=== PATIENT | female | born 1985 | race Caucasian/White ===

== ENCOUNTER 2017-12-21 13:05 | Outpatient (CLI) | payer OTHER ==
[2017-12-21] MEDS: TERBUTALINE 1 MG/ML INJ SC (15:03)
== END 2017-12-21 15:49 | disposition home or self-care (01) ==
LOC: OBT 13:05 → L-D 13:05 → OBT 15:49
DX: O62.9 Abnormality of forces of labor, unspecified (principal); Z3A.30 30 weeks gestation of pregnancy
CPT/HCPCS: 76818; 96372

== ENCOUNTER 2017-12-27 00:01 | Outpatient (CLI) | payer OTHER ==
[2017-12-27 03:17] LABS: ADD UMIC YES; UR ASCORBIC ACID NEGATIVE (NEGATIVE); UR BILIRUBIN (Dip) NEGATIVE (NEGATIVE); UR BLOOD (Dip) 2+ mg/dL (NEGATIVE); UR CLARITY CLEAR (CLEAR); UR COLOR YELLOW (YELLOW); UR GLUCOSE (Dip) NEGATIVE (NEGATIVE); UR KETONES (Dip) NEGATIVE (NEGATIVE); UR LEUKOCYTE ESTERASE (Dip) 2+ Leu/ul (NEGATIVE); UR NITRITE (Dip) NEGATIVE (NEGATIVE); UR RBC 2 /HPF (0-5); UR SPECIFIC GRAVITY (Dip) 1.012 (1.003-1.030); UR TOTAL PROTEIN (Dip) NEGATIVE (NEGATIVE); UR UROBILINOGEN (Dip) NEGATIVE (NEGATIVE); UR WBC 3 /HPF (0-5)
[2017-12-27] MEDS ORDERED: TERBUTALINE 1 ML (03:46)
[2017-12-27] MEDS: TERBUTALINE 1 MG/ML INJ SC (03:57)
== END 2017-12-27 05:25 | disposition home or self-care (01) ==
LOC: OBT 00:01 → L-D 00:02 → OBT 05:25
DX: O62.9 Abnormality of forces of labor, unspecified (principal); Z3A.31 31 weeks gestation of pregnancy
CPT/HCPCS: 76817; 81001; 82962; 96372

== ENCOUNTER 2018-02-03 16:27 | Inpatient (IN) | payer OTHER ==
[2018-02-03 17:17] LABS: ADD MAN DIFF? NO
[2018-02-03 17:18] LABS: WHITE BLOOD COUNT 10.2 10^3/ul (4.8-10.8)
[2018-02-03 17:18] LABS: BASOPHILS % 0.2 % (0.0-2.0); EOSINOPHILS # 0.1 10^3/ul (0.0-0.5); EOSINOPHILS % 0.8 % (0.0-7.0); HEMATOCRIT 27.7 % (37.0-47.0); HEMOGLOBIN 8.9 g/dl (12.0-16.0); LYMPHOCYTES # 1.5 10^3/ul (0.8-2.9); LYMPHOCYTES % 14.7 % (15.0-51.0); MEAN CORPUSCULAR HEMOGLOBIN 27.8 pg (29.0-33.0); MEAN CORPUSCULAR HGB CONC 32.1 g/dl (32.0-37.0); MEAN CORPUSCULAR VOLUME 86.6 fl (82.0-101.0); MEAN PLATELET VOLUME 10.7 fl (7.4-10.4); MONOCYTE # 0.5 10^3/ul (0.3-0.9); MONOCYTES % 4.7 % (0.0-11.0); NEUTROPHIL # 8.1 10^3/ul (1.6-7.5); NEUTROPHILS % 79.2 % (39.0-77.0); PLATELET COUNT 286 10^3/UL (140-415); RED CELL DISTRIBUTION WIDTH 13.7 % (11.5-14.5)
[2018-02-03 17:40] LABS: ADD UMIC YES; UR ASCORBIC ACID NEGATIVE (NEGATIVE); UR BACTERIA FEW /HPF (NONE SEEN); UR BILIRUBIN (Dip) NEGATIVE (NEGATIVE); UR BLOOD (Dip) 2+ mg/dL (NEGATIVE); UR CLARITY SLIGHTLY CLOUDY (CLEAR); UR COLOR YELLOW (YELLOW); UR GLUCOSE (Dip) NEGATIVE (NEGATIVE); UR KETONES (Dip) NEGATIVE (NEGATIVE); UR LEUKOCYTE ESTERASE (Dip) 1+ Leu/ul (NEGATIVE); UR MUCUS MODERATE /HPF (NONE SEEN); UR NITRITE (Dip) NEGATIVE (NEGATIVE); UR RBC 14 /HPF (0-5); UR SPECIFIC GRAVITY (Dip) 1.024 (1.003-1.030); UR SQUAMOUS EPITHELIAL CELL FEW /HPF (FEW); UR TOTAL PROTEIN (Dip) 1+ mg/dl (NEGATIVE); UR UROBILINOGEN (Dip) 1+ mg/dL (NEGATIVE); UR WBC 14 /HPF (0-5)
[2018-02-03 17:43] LABS: ALANINE AMINOTRANSFERASE 16 IU/L (13-69); ALBUMIN 2.8 g/dl (3.3-4.9); ALBUMIN/GLOBULIN RATIO 0.93; ALKALINE PHOSPHATASE 148 IU/L (42-121); ANION GAP 10 (8-16); ASPARTATE AMINO TRANSFERASE 14 IU/L (15-46); BILIRUBIN,INDIRECT 0.3 mg/dl (0-1.1); BILIRUBIN,TOTAL 0.3 mg/dl (0.2-1.3); BLOOD UREA NITROGEN 8 mg/dl (7-20); CALCIUM 8.2 mg/dl (8.4-10.2); CARBON DIOXIDE 21 mmol/L (21-31); CHLORIDE 110 mmol/L (97-110); CREATININE 0.43 mg/dl (0.44-1.00); GLUCOSE 99 mg/dl (70-220); POTASSIUM 3.9 mmol/L (3.5-5.1); SODIUM 137 mmol/L (135-144); TOTAL PROTEIN 5.8 g/dl (6.1-8.1); URIC ACID 3.2 mg/dl (3.1-7.9)
[2018-02-03 18:04] LABS: INR 0.95; PARTIAL THROMBOPLASTIN TIME 25.7 Sec (25.0-35.0); PROTIME 12.8 Sec (11.9-14.9)
[2018-02-03] MEDS: ACCU-CHEK XX (22:16)
[2018-02-04] MEDS: ACETAMINOPHEN 500 MG TAB PO ×2 (01:58→20:56)
[2018-02-04] MEDS ORDERED: TERBUTALINE 1 ML (06:36)
[2018-02-04] MEDS: ACCU-CHEK XX ×3 (06:38→13:53)
[2018-02-04] MEDS: TERBUTALINE 1 MG/ML INJ SC (06:42)
[2018-02-04] MEDS: AMPICILLIN 2 GM/NS (PMX) 100 ML IV (07:00)
[2018-02-04] MEDS: LACTATED RINGER'S 1,000 ML IV ×3 (07:48→17:48)
[2018-02-04] MEDS: AMPICILLIN 1 GM/NS (PMX) 50 ML IV ×2 (11:00→22:15)
[2018-02-04] MEDS: PRENATAL VITAMIN PO (11:04)
[2018-02-04] MEDS: AMPICILLIN 2 GM/NS (PMX) 100 ML IVPB (17:46)
[2018-02-04] MEDS: BETAMET NA PHOS/AC(6 MG/ML) 5ML INJ IM (18:54)
[2018-02-04 19:32] LABS: COLLECTION PERIOD 24 hrs
[2018-02-04 20:16] LABS: VOLUME 3500 mls
[2018-02-04 20:32] LABS: CREATININE,URINE RANDOM 23.78 mg/dl (20-320)
[2018-02-04 21:11] LABS: COLLECTION PERIOD 24 hrs; VOLUME 3500 ml/24hrs
[2018-02-04 21:12] LABS: CREATININE CLEARANCE 134.4 mls/min (84.0-162.0); SCRET 0.43 mg/dl (0.44-1.00)
[2018-02-05] MEDS: LACTATED RINGER'S 1,000 ML IV ×3 (02:35→21:27)
[2018-02-05] MEDS: AMPICILLIN 1 GM/NS (PMX) 50 ML IV ×4 (02:35→13:48)
[2018-02-05] MEDS: ACETAMINOPHEN 500 MG TAB PO (04:18)
[2018-02-05] MEDS: PRENATAL VITAMIN PO (09:00)
[2018-02-05] MEDS ORDERED: MISOPROSTOL 200 MCG TAB PR ×2 (12:00→21:30)
[2018-02-05] MEDS ORDERED: METHYLERGONOVINE 0.2 MG INJ IM ×2 (12:00→21:30)
[2018-02-05] MEDS ORDERED: CARBOPROST 250 MCG INJ IM ×2 (12:00→21:30)
[2018-02-05] MEDS: FAMOTIDINE 20 MG INJ IV (12:12)
[2018-02-05] MEDS: AL HYDROX/MG HYDROX/SIMETH 30 ML CUP PO (12:12)
[2018-02-05] MEDS ORDERED: FENTAnyl 50 MCG/ML VIAL (15:39)
[2018-02-05] MEDS ORDERED: BUPIVACAINE 0.75%/DEXT (SPINAL) 2 ML INJ (15:39)
[2018-02-05] MEDS ORDERED: morphine SULFATE/PF (10 MG/10 ML) INJ (15:40)
[2018-02-05] MEDS ORDERED: PHENYLephrine (100 MCG/ML) 5ML SYG (16:00)
[2018-02-05] MEDS ORDERED: DEXAMETHASONE 4 MG/ML 1 ML INJ (16:02)
[2018-02-05] MEDS ORDERED: ONDANSETRON 4 MG INJ (16:02)
[2018-02-05 16:08] LABS: HEPATITIS B SURFACE ANTIBODY POSITIVE (NEGATIVE)
[2018-02-05] MEDS: LACTATED RINGER'S 1,000 ML IV* (17:29)
[2018-02-05] MEDS ORDERED: LACTATED RINGER'S 1,000 ML IV (17:29)
[2018-02-05] MEDS ORDERED: NALOXONE (0.4 MG/ML) INJ IV (17:30)
[2018-02-05] MEDS ORDERED: ACETAMINOPHEN 500 MG TAB PO (17:30)
[2018-02-05] MEDS ORDERED: ZOLPIDEM 5 MG TAB PO (17:30)
[2018-02-05] MEDS ORDERED: HYDROmorphONE 0.5 MG/0.5 ML SYG IV ×2 (17:30)
[2018-02-05] MEDS ORDERED: ONDANSETRON 4 MG INJ IV (17:30)
[2018-02-05] MEDS: OXYTOCIN 30 UNITS/LR 500 ML IV (17:43)
[2018-02-05] MEDS: CEFAZOLIN 2 GM/50 ML (PMX) 50 ML IV (17:58)
[2018-02-05] MEDS: AMPICILLIN 2 GM/NS (PMX) 100 ML IV (18:06)
[2018-02-05] MEDS: DIPHENHYDRAMINE 50 MG INJ IV (18:11)
[2018-02-05] MEDS: KETOROLAC 30 MG INJ IV (18:11)
[2018-02-05] MEDS: AZITHROMYCIN 500MG/NS (PMX) 250 ML IVPB (18:50)
[2018-02-05 19:40] LABS: HEPATITIS B SURFACE ANTIGEN NEGATIVE (NEGATIVE)
[2018-02-05] MEDS ORDERED: OXYTOCIN 30 UNITS/LR 500 ML IV (21:30)
[2018-02-05] MEDS ORDERED: NA PHOSPHATE/BIPHOS 133 ML ENEMA PR (21:30)
[2018-02-05] MEDS: CEFAZOLIN 2 GM/50 ML (PMX) 50 ML IVPB (22:40)
[2018-02-06] MEDS: LANOLIN 7 GM TUBE TOP (00:14)
[2018-02-06] MEDS: CLINDAMYCIN 300 MG CAP PO ×3 (00:14→12:12)
[2018-02-06] MEDS: KETOROLAC 30 MG INJ IV ×3 (00:14→12:12)
[2018-02-06] MEDS: LACTATED RINGER'S 1,000 ML IV ×3 (05:57→21:27)
[2018-02-06] MEDS: CEFAZOLIN 2 GM/50 ML (PMX) 50 ML IVPB ×2 (05:58→14:08)
[2018-02-06 09:42] LABS: ADD MAN DIFF? NO
[2018-02-06 09:47] LABS: WHITE BLOOD COUNT 20.7 10^3/ul (4.8-10.8)
[2018-02-06 09:47] LABS: BASOPHILS % 0.1 % (0.0-2.0); HEMATOCRIT 24.1 % (37.0-47.0); HEMOGLOBIN 7.7 g/dl (12.0-16.0); LYMPHOCYTES # 1.8 10^3/ul (0.8-2.9); LYMPHOCYTES % 8.5 % (15.0-51.0); MEAN CORPUSCULAR HEMOGLOBIN 27.6 pg (29.0-33.0); MEAN CORPUSCULAR VOLUME 86.4 fl (82.0-101.0); MEAN PLATELET VOLUME 11.1 fl (7.4-10.4); MONOCYTE # 1.1 10^3/ul (0.3-0.9); MONOCYTES % 5.4 % (0.0-11.0); NEUTROPHIL # 17.7 10^3/ul (1.6-7.5); NEUTROPHILS % 85.2 % (39.0-77.0); PLATELET COUNT 273 10^3/UL (140-415); RED BLOOD COUNT 2.79 10^6/ul (4.20-5.40); RED CELL DISTRIBUTION WIDTH 13.9 % (11.5-14.5)
[2018-02-06] MEDS: BISACODYL 10 MG SUPP PR (10:30)
[2018-02-06] MEDS: GENTAMICIN 80 MG/NS (PMX) 50 ML IVPB ×2 (16:07→23:28)
[2018-02-06 16:23] LABS: RAPID PLASMA REAGIN NONREACTIVE (NR)
[2018-02-06] MEDS: AMPICILLIN 2 GM/NS (PMX) 100 ML IVPB (18:01)
[2018-02-06] MEDS: CLINDAMYCIN 900 MG/D5W (PMX) 50 ML IVPB (18:58)
[2018-02-06] MEDS: SENNA/DOCUSATE NA (8.6MG/50MG) TAB PO (20:26)
[2018-02-06] MEDS: HYDROCODONE/APAP (5/325) TAB PO (20:26)
[2018-02-06] MEDS: IBUPROFEN 800 MG TAB PO (21:56)
[2018-02-06] MEDS: ACCU-CHEK XX ×2 (22:45)
[2018-02-07] MEDS: AMPICILLIN 2 GM/NS (PMX) 100 ML IVPB ×4 (00:05→17:54)
[2018-02-07] MEDS: CLINDAMYCIN 900 MG/D5W (PMX) 50 ML IVPB ×4 (01:08→19:28)
[2018-02-07] MEDS: LACTATED RINGER'S 1,000 ML IV ×2 (05:27→21:27)
[2018-02-07] MEDS: IBUPROFEN 800 MG TAB PO ×3 (05:30→21:37)
[2018-02-07 06:42] LABS: ADD MAN DIFF? NO
[2018-02-07 06:44] LABS: WHITE BLOOD COUNT 17.9 10^3/ul (4.8-10.8)
[2018-02-07 06:44] LABS: BASOPHIL # 0.1 10^3/ul (0.0-0.1); BASOPHILS % 0.3 % (0.0-2.0); EOSINOPHILS # 0.1 10^3/ul (0.0-0.5); EOSINOPHILS % 0.4 % (0.0-7.0); HEMOGLOBIN 7.6 g/dl (12.0-16.0); LYMPHOCYTES # 2.5 10^3/ul (0.8-2.9); LYMPHOCYTES % 13.9 % (15.0-51.0); MEAN CORPUSCULAR HEMOGLOBIN 26.5 pg (29.0-33.0); MEAN CORPUSCULAR HGB CONC 30.4 g/dl (32.0-37.0); MEAN CORPUSCULAR VOLUME 87.1 fl (82.0-101.0); MEAN PLATELET VOLUME 10.2 fl (7.4-10.4); MONOCYTE # 1.1 10^3/ul (0.3-0.9); NEUTROPHILS % 78.4 % (39.0-77.0); NUCLEATED RED BLOOD CELLS% 0.1 /100WBC (0.0-0.0); PLATELET COUNT 288 10^3/UL (140-415); RED BLOOD COUNT 2.87 10^6/ul (4.20-5.40); RED CELL DISTRIBUTION WIDTH 14.5 % (11.5-14.5)
[2018-02-07] MEDS: GENTAMICIN 80 MG/NS (PMX) 50 ML IVPB ×3 (07:49→23:28)
[2018-02-07] MEDS: OXYCODONE/ACETAMINOPHEN (5/325) TAB PO (12:16)
[2018-02-07] MEDS: SENNA/DOCUSATE NA (8.6MG/50MG) TAB PO ×2 (13:09→21:36)
[2018-02-07] MEDS: HYDROCODONE/APAP (5/325) TAB PO ×2 (18:05→23:20)
[2018-02-07] MEDS: BISACODYL 10 MG SUPP PR (22:52)
[2018-02-08] MEDS: AMPICILLIN 2 GM/NS (PMX) 100 ML IVPB ×2 (00:15→05:44)
[2018-02-08] MEDS: CLINDAMYCIN 900 MG/D5W (PMX) 50 ML IVPB ×4 (00:58→18:31)
[2018-02-08] MEDS: LANOLIN 7 GM TUBE TOP (02:05)
[2018-02-08] MEDS: LACTATED RINGER'S 1,000 ML IV ×3 (05:27→21:27)
[2018-02-08] MEDS: IBUPROFEN 800 MG TAB PO ×3 (05:44→22:06)
[2018-02-08 06:35] LABS: ADD MAN DIFF? NO
[2018-02-08 06:41] LABS: WHITE BLOOD COUNT 16.9 10^3/ul (4.8-10.8)
[2018-02-08 06:41] LABS: BASOPHIL # 0.1 10^3/ul (0.0-0.1); BASOPHILS % 0.4 % (0.0-2.0); EOSINOPHILS # 0.4 10^3/ul (0.0-0.5); EOSINOPHILS % 2.2 % (0.0-7.0); HEMATOCRIT 26.5 % (37.0-47.0); HEMOGLOBIN 8.2 g/dl (12.0-16.0); LYMPHOCYTES # 2.1 10^3/ul (0.8-2.9); LYMPHOCYTES % 12.6 % (15.0-51.0); MEAN CORPUSCULAR HEMOGLOBIN 27.1 pg (29.0-33.0); MEAN CORPUSCULAR HGB CONC 30.9 g/dl (32.0-37.0); MEAN CORPUSCULAR VOLUME 87.5 fl (82.0-101.0); MEAN PLATELET VOLUME 10.5 fl (7.4-10.4); MONOCYTE # 0.8 10^3/ul (0.3-0.9); MONOCYTES % 4.7 % (0.0-11.0); NEUTROPHIL # 13.3 10^3/ul (1.6-7.5); NEUTROPHILS % 79.2 % (39.0-77.0); NUCLEATED RED BLOOD CELLS # 0.1 10^3/ul (0.0-0.0); NUCLEATED RED BLOOD CELLS% 0.4 /100WBC (0.0-0.0); PLATELET COUNT 340 10^3/UL (140-415); RED BLOOD COUNT 3.03 10^6/ul (4.20-5.40); RED CELL DISTRIBUTION WIDTH 14.7 % (11.5-14.5)
[2018-02-08] MEDS: GENTAMICIN 80 MG/NS (PMX) 50 ML IVPB ×2 (08:02→16:47)
[2018-02-08] MEDS: ACCU-CHEK XX ×4 (08:15→20:30)
[2018-02-08] MEDS: SENNA/DOCUSATE NA (8.6MG/50MG) TAB PO ×2 (08:47→21:00)
[2018-02-08] MEDS: HYDROCODONE/APAP (5/325) TAB PO ×3 (08:48→22:06)
[2018-02-08] MEDS: CIPROFLOXACIN 400MG/D5W 200 ML IVPB ×2 (11:26→22:06)
[2018-02-09] MEDS: CLINDAMYCIN 900 MG/D5W (PMX) 50 ML IVPB ×3 (00:03→11:19)
[2018-02-09] MEDS: GENTAMICIN 80 MG/NS (PMX) 50 ML IVPB (01:40)
[2018-02-09] MEDS: LACTATED RINGER'S 1,000 ML IV (05:27)
[2018-02-09] MEDS: IBUPROFEN 800 MG TAB PO ×2 (05:49→13:09)
[2018-02-09] MEDS: HYDROCODONE/APAP (5/325) TAB PO ×2 (07:05→13:10)
[2018-02-09] MEDS: ACCU-CHEK XX ×3 (07:30→13:50)
[2018-02-09 08:28] LABS: ADD MAN DIFF? NO
[2018-02-09 08:35] LABS: WHITE BLOOD COUNT 12.7 10^3/ul (4.8-10.8)
[2018-02-09 08:35] LABS: BASOPHIL # 0.1 10^3/ul (0.0-0.1); BASOPHILS % 0.5 % (0.0-2.0); EOSINOPHILS # 0.5 10^3/ul (0.0-0.5); EOSINOPHILS % 3.8 % (0.0-7.0); HEMATOCRIT 25.3 % (37.0-47.0); HEMOGLOBIN 7.9 g/dl (12.0-16.0); LYMPHOCYTES # 2.1 10^3/ul (0.8-2.9); LYMPHOCYTES % 16.4 % (15.0-51.0); MEAN CORPUSCULAR HEMOGLOBIN 27.5 pg (29.0-33.0); MEAN CORPUSCULAR HGB CONC 31.2 g/dl (32.0-37.0); MEAN CORPUSCULAR VOLUME 88.2 fl (82.0-101.0); MEAN PLATELET VOLUME 10.5 fl (7.4-10.4); MONOCYTE # 0.7 10^3/ul (0.3-0.9); MONOCYTES % 5.4 % (0.0-11.0); NEUTROPHIL # 9.2 10^3/ul (1.6-7.5); NEUTROPHILS % 72.8 % (39.0-77.0); NUCLEATED RED BLOOD CELLS% 0.2 /100WBC (0.0-0.0); PLATELET COUNT 345 10^3/UL (140-415); RED BLOOD COUNT 2.87 10^6/ul (4.20-5.40); RED CELL DISTRIBUTION WIDTH 14.9 % (11.5-14.5)
[2018-02-09] MEDS: CIPROFLOXACIN 400MG/D5W 200 ML IVPB (08:37)
[2018-02-09] MEDS: SENNA/DOCUSATE NA (8.6MG/50MG) TAB PO (08:37)
[2018-02-09] MEDS: GENTAMICIN 80MG/NS (pmx) 100 ML IVPB (10:20)
[2018-02-09] MEDS: DIPHTH/TET/ACEL PERTUSS (ADULT) 0.5 ML VIAL IM* (14:15)
[2018-02-09] MEDS ORDERED: CIPROFLOXACIN 500 MG TAB PO (18:00)
== END 2018-02-09 16:34 | disposition home or self-care (01) | DRG 766 ==
LOC: L-D 02-04 08:54 → OBT 16:27 → L-D 16:27 → OBT 18:02 → L-D 18:02 → PP1 02-05 20:55
PROC: 10D00Z1 Extraction of Products of Conception, Low, Open Approach (ICD-10-PCS; principal; 2018-02-05 14:00)
PROC: 0UB00ZZ Excision of Right Ovary, Open Approach (ICD-10-PCS; 2018-02-05 14:00)
PROC: 3E033VJ Introduction of Other Hormone into Peripheral Vein, Percutaneous Approach (ICD-10-PCS; 2018-02-05 14:00)
DX: O24.429 Gestational diabetes mellitus in childbirth, unspecified control (principal); O13.4 Gestational [pregnancy-induced] hypertension without significant proteinuria, complicating childbirth; O34.83 Maternal care for other abnormalities of pelvic organs, third trimester; N83.201 Unspecified ovarian cyst, right side; Z3A.37 37 weeks gestation of pregnancy; Z37.0 Single live birth
CPT/HCPCS: 76818; 80053; 81001; 82575; 82962; 84156; 84560; 85025; 85384; 85610; 85730; 86592; 86706; 86850; 86900; 86901; 87340; 88305; 90715; 99464